=== PATIENT | male | born 1980 | race Caucasian/White ===

== ENCOUNTER 2017-05-17 15:58 | Emergency (ER) | payer OTHER ==
[~2017-05-17] VITALS: Ht 170.2 cm; Wt 86.2 kg
[~2017-05-17 15:58] MED LIST: BACTRIM DS TABL1 TAB; LEVAQUIN500 MG PO
== END 2017-05-17 21:49 | disposition home or self-care (01) ==
LOC: ER 15:58
DX: R30.0 Dysuria (principal); N20.0 Calculus of kidney; R10.31 Right lower quadrant pain